=== PATIENT | male | born 1990 | race Two or more races ===

== ENCOUNTER 2019-12-16 00:19 | Emergency (ER) | payer SELFPAY ==
[~2019-12-16] VITALS: Ht 177.8 cm; Wt 81.6 kg
[2019-12-16] MEDS ORDERED: MORPHINE SULFATE 4 MG/ML VIAL. ONE (00:32)
[2019-12-16] MEDS ORDERED: DIPH,PERTUSS(ACELL),TET VAC/PF 0.5 ML SYRINGE. VAX IM ONE ×2 (00:44→02:30)
[2019-12-16] MEDS ORDERED: ONDANSETRON PF 4 MG/2 ML VIAL. IVP ONE (01:00)
[2019-12-16] MEDS ORDERED: MORPHINE SULFATE 10 MG/ML VIAL. IV ONE ×2 (01:00)
[2019-12-16] MEDS ORDERED: BACITRACIN TOPICAL OINT PACKET. TP ONE ×2 (01:00→01:24)
[2019-12-16] MEDS ORDERED: IV NORMAL SALINE 1000ML BAG 1,000 ML IV ONE (01:00)
[2019-12-16] MEDS ORDERED: OXYC1TAB15 PO (02:02)
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
[2019-12-16] MEDS ORDERED: MORPHINE SULFATE 4 MG/ML VIAL. IV ONE (03:45)
== END 2019-12-16 02:16 | disposition home or self-care (01) ==
LOC: ER 00:19
DX: T23.261A Burn of second degree of back of right hand, initial encounter (principal); T21.22XA Burn of second degree of abdominal wall, initial encounter; T21.12XA Burn of first degree of abdominal wall, initial encounter; T24.202A Burn of second degree of unspecified site of left lower limb, except ankle and foot, initial encounter; X08.8XXA Exposure to other specified smoke, fire and flames, initial encounter; Y93.G3 Activity, cooking and baking; Y92.89 Other specified places as the place of occurrence of the external cause; Y99.8 Other external cause status
CPT/HCPCS: 90471; 90715; 96374; 96375; 99285; J2270; J2405; J7030